=== PATIENT | female | born 1975 | race Caucasian/White ===

== ENCOUNTER 2020-04-04 23:24 | Emergency (ER) | payer OTHER ==
[2020-04-05] MEDS ORDERED: cloNIDine 0.1 MG Tab PO ONE ×2 (00:50→01:53)
[2020-04-05] MEDS ORDERED: LORazepam 0.5 MG Tab PO ONE (00:50)
[2020-04-05] MEDS ORDERED: Pantoprazole 40 MG Tab.CR PO ONE (00:51)
--- NOTE | 2020-04-05 00:55 | EDM.PDOCBH ---
ED HPI GENERAL MEDICAL PROBLEM - General Chief Complaint: Behavioral/Psych Stated Complaint: POSSIBLE PANIC ATTACK JAW PAIN AND SHAKING Time Seen by Provider: 04/05/20 00:05 Source of Information: Reports: Patient History Limitations: Reports: No Limitations - History of Present Illness INITIAL COMMENTS - FREE TEXT/NARRATIVE: This is a 44-year-old female. She is traveling to [place] and she is been under a lot of life stressors and work stressors and she is noted that she has these shaking spells and numbness and tingling in her legs at times and she is having a hard time eating because her stomach is upset but she has not been vomiting or diarrhea. When she stopped to the hotel here in town and got out of the car she had this severe shaking spell and the tingling in her legs and she knows that her blood pressure is up when she gets the tingling in her legs. So she comes to the ER for evaluation. She does recount multiple things at work that are causing her stress and she was trying to take a vacation by going to [place]. She denies any fever or chills no cough no congestion and no other acute symptoms. Epigastric Pain Score (Numeric/FACES): 2 - Related Data Allergies Allergy/AdvReac Type Severity Reaction Status Date / Time amoxicillin Allergy Hives Verified 04/05/20 01:01 Home Meds: Home Meds Pantoprazole Sodium [Protonix] 40 mg PO QAM #30 tablet. 04/05/20 [Rx] lisinopriL [Prinivil] 20 mg PO DAILY #30 tab 04/05/20 [Rx] Past Medical History HEENT History: Reports: Impaired Vision Other HEENT History: Wears glasses NON [employer] History: Reports: - Past Surgical History Female Surgical History: Reports: Section Social & Family History - Tobacco Use Smoking Status *Q: Never Smoker - Recreational Drug Use Recreational Drug Use: No ED ROS GENERAL - Review of Systems Review Of Systems: See Below Constitutional: Denies: Fever, Chills HEENT: Reports: No Symptoms Respiratory: Denies: Shortness of Breath, Cough Cardiovascular: Reports: No Symptoms Endocrine: Reports: No Symptoms GI/Abdominal: Reports: Other (Epigastric bloating). Denies: Abdominal Pain : Reports: No Symptoms Musculoskeletal: Reports: No Symptoms Skin: Reports: No Symptoms Neurological: Reports: Tingling, Tremors Psychiatric: Reports: Anxiety Hematologic/Lymphatic: Reports: No Symptoms ED EXAM, BEHAVIORAL HEALTH - Physical Exam Exam: See Below Exam Limited By: No Limitations General Appearance: Alert, WD/WN, No Apparent Distress Eye Exam: Bilateral Eye: Normal Inspection Ears: Normal External Exam, Normal Canal, Normal TMs Nose: Normal Inspection Throat/Mouth: Normal Voice, No Airway Compromise Head: Normocephalic Neck: Supple Respiratory/Chest: No Respiratory Distress, Lungs Clear, Normal Breath Sounds Cardiovascular: Regular Rate, Rhythm, No Murmur GI/Abdominal: Soft, Non-Tender Back Exam: Full Range of Motion Extremities: Normal Inspection, Normal Range of Motion Neurological: Alert, Normal Mood/Affect, No Motor/Sensory Deficits, Oriented x 3 Psychiatric: Alert, Oriented, Other (The more she talks about her stressors the more stress she becomes an anxious she becomes) Skin Exam: Warm, Dry COURSE, BEHAVIORAL HEALTH COMP - Course Vital Signs: Last Vital Signs Temp 98.0 F 04/04/20 23:36 Pulse 76 04/04/20 23:36 Resp 17 04/04/20 23:36 BP 168/106 H 04/05/20 02:18 Pulse Ox 94 L 04/04/20 23:36 Orders, Labs, Meds: Medications Discontinued Medications Generic Name Dose Route Start Last Admin Trade Name Sarah PRN Reason Stop Dose Admin Clonidine HCl 0.1 mg 04/05/20 00:50 04/05/20 01:08 Catapres PO 04/05/20 00:51 0.1 mg ONETIME ONE Administration Clonidine HCl 0.2 mg 04/05/20 01:53 04/05/20 02:18 Catapres PO 04/05/20 01:54 0.2 mg ONETIME ONE Administration Lisinopril 20 mg 04/05/20 02:56 Prinivil PO 04/05/20 02:57 ONETIME ONE Lorazepam 0.5 mg 04/05/20 00:50 04/05/20 01:08 Ativan PO 04/05/20 00:51 0.5 mg ONETIME ONE Administration Pantoprazole Sodium 40 mg 04/05/20 00:51 04/05/20 01:08 Protonix PO 04/05/20 00:52 40 mg ONETIME ONE Administration Discharge vs Psych Eval/Treatment:: 04/05/20 03:28 Patient states that she is feeling much better with her blood pressure coming down. She has no other acute complaints at this time and she wants to go home. She states that her stomach is feeling much better as well. Departure - Departure Time of Disposition: 03:29 Disposition: Home, Self-Care 01 Condition: Good Clinical Impression: Elevated blood pressure reading, Dyspepsia, History of recent stressful life event - Discharge Information *PRESCRIPTION DRUG MONITORING PROGRAM REVIEWED*: Not Applicable *COPY OF PRESCRIPTION DRUG MONITORING REPORT IN PATIENT FORD: Not Applicable Prescriptions: lisinopriL [Prinivil] 20 mg PO DAILY #30 tab Pantoprazole Sodium [Protonix] 40 mg PO QAM #30 tablet. Instructions: Preventing Hypertension Referrals: PCP,None [Primary Care Provider] - Forms: ED Department Discharge Additional Instructions: When you wake up from sleeping take the 20 mg lisinopril to help control your blood pressure, when you get to the next big city then get your prescriptions filled for your stomach the Protonix and the blood pressure lisinopril take them daily in the morning, follow-up with your family doctor once you get home for recheck since your blood pressure medications will need to be adjusted, return to the ER if needed Sepsis Event Note (ED) - Evaluation Sepsis Screening Result: No Definite Risk - Focused Exam Vital Signs: Vital Signs Temp Pulse Resp BP BP Pulse Ox 04/05/20 02:18 168/106 H 04/05/20 01:08 162/100 H 04/04/20 23:36 98.0 F 76 17 194/113 H 94 L
[2020-04-05] MEDS ORDERED: Lisinopril 20 MG Tab PO ONE (02:56)
== END 2020-04-05 03:45 | disposition home or self-care (01) ==
LOC: JD.ED 23:24
DX: R10.13 Epigastric pain (principal); R03.0 Elevated blood-pressure reading, without diagnosis of hypertension; Z88.1 Allergy status to other antibiotic agents; Z79.899 Other long term (current) drug therapy; Z63.79 Other stressful life events affecting family and household
CPT/HCPCS: 99283; A9270